=== PATIENT | female | born 1985 | race Caucasian/White ===

== ENCOUNTER 2016-12-17 09:26 | Outpatient (CLI) | payer OTHER | END 2016-12-17 09:27 | disposition home or self-care (01) | DX: G47.10 Hypersomnia, unspecified (principal); G47.8 Other sleep disorders; R06.83 Snoring; F51.04 Psychophysiologic insomnia ==

== ENCOUNTER 2017-01-06 19:16 | Outpatient (CLI) | payer OTHER | END 2017-01-06 19:17 | disposition home or self-care (01) | DX: G47.33 Obstructive sleep apnea (adult) (pediatric) (principal); Z68.33 Body mass index [BMI] 33.0-33.9, adult ==

== ENCOUNTER 2017-01-28 09:20 | Outpatient (CLI) | payer OTHER | END 2017-01-28 09:21 | disposition home or self-care (01) | DX: G47.33 Obstructive sleep apnea (adult) (pediatric) (principal) ==

== ENCOUNTER 2017-03-11 08:59 | Outpatient (CLI) | payer OTHER | END 2017-03-11 09:00 | disposition home or self-care (01) | DX: G47.33 Obstructive sleep apnea (adult) (pediatric) (principal) ==

== ENCOUNTER 2017-03-17 14:56 | Emergency (ER) | payer OTHER ==
[2017-03-17] MEDS ORDERED: KETOROLAC 60 MG/2 ML VIAL IM STA (15:13)
[2017-03-17] MEDS ORDERED: predniSONE 20 MG TABLET PO STA (15:13)
[2017-03-17] MEDS ORDERED: KETOROLAC 60 MG/2 ML VIAL ONE (15:17)
[2017-03-17] MEDS ORDERED: predniSONE 20 MG TABLET ONE (15:17)
== END 2017-03-17 15:26 | disposition home or self-care (01) ==
DX: M54.17 Radiculopathy, lumbosacral region (principal); R03.0 Elevated blood-pressure reading, without diagnosis of hypertension
CPT/HCPCS: 96372; 99283; J7512

== ENCOUNTER 2019-04-27 13:21 | Emergency (ER) | payer OTHER ==
[2019-04-27 13:32] VITALS: BP 133/87
== END 2019-04-27 13:34 | disposition left against medical advice (07) ==
LOC: ED 13:21
DX: Z53.21 Procedure and treatment not carried out due to patient leaving prior to being seen by health care provider (principal)

== ENCOUNTER 2019-12-05 06:17 | Emergency (ER) | payer OTHER ==
[2019-12-05 06:37] VITALS: BP 117/91
--- NOTE | 2019-12-05 07:30 | ED Physician Documentation ---
PD HPI HEENT - Stated complaint Stated Complaint: SORE THROAT - Chief complaint Chief Complaint: Heent - History obtained from History obtained from: Patient - History of Present Illness Timing - duration: Hours Timing - details: Abrupt onset Location: Throat Associated symptoms: No: Fever, Congestion, Rhinorrhea, Trismus, Swollen nodes Similar symptoms before: Has not had sx before Recently seen: Clinic - Additional information Additional information: This is a 34-year-old woman who went to the [facility] yesterday and had a cyst on her left breast incised and drained. They put her on amoxicillin as a "precaution". She took the first dose around 7:00 last night. She woke up at 415 feeling like there was swelling and kind of a phlegm feeling in the back of her throat. When she looked in there she noticed that the uvula was swollen. She did not see any white patches. She has not been around anyone who has been sick recently. She is never had this happen before and to her knowledge has never had amoxicillin. She does not have any rash, shortness of breath or fever. Review of Systems Constitutional: denies: Fever Throat: reports: Sore throat. 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 - Past Surgical History Past Surgical History: Yes General: Colonoscopy /CONTRACT PROJECT MANAGER: Oophrectomy - Present Medications Home Medications: Ambulatory Orders Medication Instructions Recorded Confirmed Amoxicillin 500 mg PO DAILY 12/05/19 12/05/19 - Allergies Allergies/Adverse Reactions: Allergies Allergy/AdvReac Type Severity Reaction Status Date / Time No Known Drug Allergies Allergy Verified 12/05/19 06:37 - Social History Does the pt smoke?: No Smoking Status: Never smoker Does the pt drink ETOH?: No Does the pt have substance abuse?: No - Immunizations Immunizations are current?: Yes - POLST Patient has POLST: No PD ED PE NORMAL - Vitals Vital signs reviewed: Yes - General General: Alert and oriented X 3, No acute distress, Well developed/nourished - HEENT HEENT: Atraumatic, PERRL, EOMI, Ears normal, Moist mucous membranes, Other (There is edema isolated to the uvula. No posterior or tonsillar pillar area edema or edema. The tongue is not edematous.) - Neck Neck: Supple, no meningeal sign - Cardiac Cardiac: RRR - Respiratory Respiratory: No respiratory distress, Other (Voice is clear.) Results - Vitals Vitals: Vital Signs - 24 hr 12/05/19 06:20 Temperature 36.9 C Heart Rate 74 Respiratory 16 Rate Blood Pressure 117/91 H O2 Saturation 99 Oxygen O2 Source Room air PD MEDICAL DECISION MAKING - ED course Complexity details: d/w patient ED course: Patient has apparent angioedema without any infectious etiology evident. Possible that this is a reaction to the amoxicillin so she is going to stop taking that and be cautious about ever being exposed to it again in the future. Avoid gargling. Cool liquids would be helpful. Benadryl and/or ibuprofen for the swelling. Return if she has any difficulty breathing or swallowing. Departure - Departure Disposition: 01 Home, Self Care Clinical Impression: Angioedema Qualifiers: Encounter type: initial encounter Qualified Code(s): T78.3XXA - Angioneurotic edema, initial encounter Condition: Good Instructions: ED Angioedema Follow-Up: TOM Aleman [Provider Group] Comments: Avoid doing any gargling. Drink cool liquids. May try Benadryl and/or ibuprofen to help with the swelling. I would avoid amoxicillin in the future. Return if you have any difficulty breathing or if you have inability to swallow.
== END 2019-12-05 07:42 | disposition home or self-care (01) ==
LOC: ED 06:17
DX: T78.3XXA Angioneurotic edema, initial encounter (principal); X58.XXXA Exposure to other specified factors, initial encounter
CPT/HCPCS: 99283; 99284

== ENCOUNTER 2020-11-24 20:15 | Emergency (ER) | payer OTHER ==
[2020-11-24 20:28] VITALS: BP 125/93
[2020-11-24] MEDS ORDERED: diphenhydrAMINE INJ 50 MG/ML VIAL IM STA (20:36)
--- NOTE | 2020-11-24 21:05 | ED Physician Documentation ---
History of Present Illness - Stated complaint Stated Complaint: ALLERGIC REACTION - Chief complaint Chief Complaint: Allergic Rx - History obtained from History obtained from: Patient - Additonal information Additional information: 35-year-old female was brought to the emergency department for evaluation of allergic reaction after taking her COVID-19 vaccine. This is her first vaccination. Very shortly after receiving the vaccine she developed a flushed rash on her face and neck. She denied chest pain or shortness of breath. She did feel fullness in her jaws but had no dysphonia. She reported that she is feeling quite anxious and lightheaded. She reports a history of allergy to fluconazole as well as significant daily allergies for which she takes Zyrtec. Review of Systems Constitutional: reports: Reviewed and negative Ears: reports: Reviewed and negative Nose: reports: Reviewed and negative Throat: reports: Reviewed and negative Cardiac: denies: Chest pain / pressure, Palpitations Respiratory: denies: Dyspnea, Cough, Hemoptysis, Wheezing GI: reports: Reviewed and negative : reports: Reviewed and negative Skin: reports: Rash (facial flusing). 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 - Past Surgical History Past Surgical History: Yes General: Colonoscopy /TROUBLE CLERK: Oophrectomy - Present Medications Home Medications: Ambulatory Orders Medication Instructions Recorded Confirmed Amoxicillin 500 mg PO DAILY 12/05/19 12/05/19 - Allergies Allergies/Adverse Reactions: Allergies Allergy/AdvReac Type Severity Reaction Status Date / Time No Known Drug Allergies Allergy Verified 11/24/20 20:21 - Social History Does the pt smoke?: No Smoking Status: Never smoker Does the pt drink ETOH?: No Does the pt have substance abuse?: No - Immunizations Immunizations are current?: Yes - POLST Patient has POLST: No PD ED PE EXPANDED - General General: Alert, No acute distress, Anxious - HEENT HEENT: PERRL, Pupils unequal, Moist mucous membranes, Pharynx normal, Other (Normal phonation. No tongue or lip swelling. No swelling on the floor of the mouth.). No: Swollen tonsils, Tonsillar exudate - Neck Neck: Supple w/out meningeal sx, No tenderness. No: Adenopathy - Cardiac Cardiac: Regular Rate, Regular Rhythm, Radial strong equal, Pedal strong equal, Cap refill < 2 sec - Respiratory Respiratory: Clear to ausultation bennie. No: Distress, Labored - Abdomen Abdomen: Normal Bowel sounds. No: Tender to palpation - Derm Derm: Normal color, Warm and dry, Rash (Facial flushing of cheeks and neck without induration or urticaria.) - Neuro Neuro: Alert and Oriented X 3, CNII-XII intact - GCS Eye Opening: Spontaneous Motor: Obeys Commands Verbal: Oriented Total: 15 Results - Vitals Vitals: Vital Signs - 24 hr 11/24/20 11/24/20 20:21 20:48 Temperature 36.8 C Heart Rate 92 92 Respiratory 20 20 Rate Blood Pressure 125/93 H 125/93 H O2 Saturation 100 100 Oxygen O2 Source Room air PD MEDICAL DECISION MAKING - ED course Complexity details: reviewed results, re-evaluated patient, considered differential, d/w patient ED course: 35-year-old female was brought to the emergency department for evaluation of allergic reaction after receiving her first dose of Pfizer COVID-19 vaccine. Very shortly after receiving the injection she had flushing and erythema of the face and neck. No way did she have chest pain shortness of breath. She was brought into the emergency department. After about 15 minutes most of the flushing and erythema had dissipated. Patient was feeling well at that time. I did give her Benadryl 50 mg IM. This caused the rash to nearly fully gama. Patient was observed in the emergency department for over an hour with out any findings of airway compromise. Her vital signs remained stable. She is discharged home. She was advised to discuss this allergic reaction with the vaccine administration staff before she gets the second dose of the Pfizer Covid vaccine. Premedication with Benadryl may be advised. Departure - Departure Disposition: Home, Self Care Clinical Impression: Vaccine reaction Qualifiers: Encounter type: initial encounter Qualified Code(s): T50.Z95A - Adverse effect of other vaccines and biological substances, initial encounter Condition: Stable Record reviewed to determine appropriate education?: Yes Comments: Coretta you had a mild allergic reaction to the COVID-19 vaccine. You began to get better without any treatment here in the emergency department though we did give you some Benadryl. I would recommend that you take the Benadryl once or twice a day for the next few days. If at any point you have a worsening of the rash, tongue or lip swelling difficulty breathing shortness of air please return immediately to the ER
--- OUTSIDE RECORDS SUMMARY | 2020-11-30 01:22 | EXTERNAL MEDICAL SUMMARY RPT | Continuity of Care Document ---
:1985 Demographics Phone Unavailable Preferred Language Unknown Marital Status Unknown Mandaen Affiliation Unknown Race Unknown Ethnic Group Unknown Author Organization [facility] Address [address] [phone] Phone Care Team Providers Name Role Phone DE SOUZA Unavailable Unavailable Allergies date description facility No Known Drug Allergies [facility] NO KNOWN ALLERGIES [facility] NO KNOWN ALLERGIES [facility] Social History date description facility [phone]
== END 2020-11-24 21:43 | disposition home or self-care (01) ==
LOC: ED 20:15
DX: T80.62XA Other serum reaction due to vaccination, initial encounter (principal); T50.Z95A Adverse effect of other vaccines and biological substances, initial encounter; R23.2 Flushing; R21 Rash and other nonspecific skin eruption; Y84.8 Other medical procedures as the cause of abnormal reaction of the patient, or of later complication, without mention of misadventure at the time of the procedure
CPT/HCPCS: 96372; 99283; 99284; J1200

== ENCOUNTER 2021-02-22 18:24 | Emergency (ER) | payer OTHER ==
--- OUTSIDE RECORDS SUMMARY | 2021-02-22 18:27 | EXTERNAL MEDICAL SUMMARY RPT | Continuity of Care Document ---
:1985 Demographics Phone Unavailable Preferred Language Unknown Marital Status Unknown Gnosticism Affiliation Unknown Race Unknown Ethnic Group Unknown Author Organization [place] Address [address] [phone] Phone Social History date description facility [phone]
--- OUTSIDE RECORDS SUMMARY | 2021-02-22 18:29 | EXTERNAL MEDICAL SUMMARY RPT | Continuity of Care Document ---
:1985 Demographics Phone Unavailable Preferred Language Unknown Marital Status Unknown Evangelical Affiliation Unknown Race Unknown Ethnic Group Unknown Author Organization [place] Address [address] [phone] Phone Social History date description facility [phone]
[2021-02-22 18:41] VITALS: BP 140/100
[2021-02-22] MEDS ORDERED: KETOROLAC 30 MG/ML VIAL IM STA (18:58)
--- NOTE | 2021-02-22 20:20 | ED Physician Documentation ---
History of Present Illness - Stated complaint Stated Complaint: BACK PX - Chief complaint Chief Complaint: Back Pain - History obtained from History obtained from: Patient - Additonal information Additional information: 45-year-old woman with past medical history of sciatica presents with right lower back pain Progressively worsening over the past several days radiating to the right leg consistent with her usual sciatica. Sharp, intermittent, worse with movement. Denies fever, groin numbness, urinary or fecal incontinence, weakness or sensory loss. Denies other symptoms. 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 : None HEENT: None Psych: None Musculoskeletal: None Derm: None - Past Surgical History Past Surgical History: Yes General: Colonoscopy /TARIFF EXPERT: Oophrectomy - Present Medications Home Medications: Ambulatory Orders Medication Instructions Recorded Confirmed No Known Home Medications 02/22/21 02/22/21 - Allergies Allergies/Adverse Reactions: Allergies Allergy/AdvReac Type Severity Reaction Status Date / Time No Known Drug Allergies Allergy Verified 02/22/21 18:39 - Social History Does the pt smoke?: No Smoking Status: Never smoker Does the pt drink ETOH?: No Does the pt have substance abuse?: No - Immunizations Immunizations are current?: Yes - POLST Patient has POLST: No PD ED PE NORMAL - Vitals Vital signs reviewed: Yes - General General: Alert and oriented X 3, No acute distress, Well developed/nourished - HEENT HEENT: Atraumatic, PERRL, EOMI - Extremities Extremities: Normal ROM s pain - Neuro Neuro: Other (ambulatory without difficulty) - Psych Psych: Normal mood, Normal affect Results - Vitals Vitals: Vital Signs - 24 hr 02/22/21 02/22/21 18:39 19:25 Temperature 36.6 C Heart Rate 81 Respiratory 18 16 Rate Blood Pressure 140/100 H O2 Saturation 100 Oxygen O2 Source Room air PD MEDICAL DECISION MAKING - ED course ED course: Note that I initially only only was able to visually evaluate Ms. Torrez. She said she was having a sciatica flare and we gave her a dose of Toradol. She eloped prior to full examination and I called her, confirming that she had improvement in her symptoms with Toradol. She states that she has not been experiencing any numbness, to the groin or to the extremities, no weakness, no fevers and this feels like her usual sciatica flares. I will call in a prescription for Toradol to [facility] in [place] and she will follow up with her primary doctor. Return precautions discussed. Departure - Departure Disposition: ED Elope Clinical Impression: Sciatica Condition: Good Discharge Date/Time: 02/22/21 20:10
== END 2021-02-22 20:10 | disposition left against medical advice (07) ==
LOC: ED 18:24
DX: M54.30 Sciatica, unspecified side (principal)
CPT/HCPCS: 96372; 99283

== ENCOUNTER 2021-04-18 01:42 | Emergency (ER) | payer OTHER ==
--- OUTSIDE RECORDS SUMMARY | 2021-04-18 01:46 | EXTERNAL MEDICAL SUMMARY RPT | Continuity of Care Document ---
:1985 Demographics Phone Unavailable Preferred Language Unknown Marital Status Unknown Anglican Affiliation Unknown Race Unknown Ethnic Group Unknown Author Organization [facility] Address [address] [phone] Phone Allergies Encounters Medications Problems Results
--- OUTSIDE RECORDS SUMMARY | 2021-04-18 01:49 | EXTERNAL MEDICAL SUMMARY RPT | Continuity of Care Document ---
:1985 Demographics Phone Unavailable Preferred Language Unknown Marital Status Unknown Pentecostalism Affiliation Unknown Race Unknown Ethnic Group Unknown Author Organization [place] Address [address] [phone] Phone Allergies Encounters Medications Problems Results
--- NOTE | 2021-04-18 01:56 | ED Physician Documentation ---
PD HPI HEENT - Stated complaint Stated Complaint: BILAT EAR SWELLING - Chief complaint Chief Complaint: Heent - History obtained from History obtained from: Patient - History of Present Illness Timing - onset: How many days ago (2) Timing - duration: Days (2) Timing - details: Gradual onset, Still present (much worse tonight with notable swelling of right ear canal and around the ear.) Location: Right ear, Left ear. No: Sinuses, Throat Worsens: No: Swalllowing, Noise Associated symptoms: No: Fever, Congestion, Rhinorrhea Similar symptoms before: Has not had sx before Recently seen: Not recently seen Review of Systems Constitutional: denies: Fever, Chills Ears: reports: Loss of hearing, Ear pain, Drainage/discharge. 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 DEPARTMENT: Oophrectomy - Present Medications Home Medications: Ambulatory Orders Medication Instructions Recorded Confirmed Cetirizine [ZyrTEC] 10 mg PO DAILY 04/18/21 04/18/21 Neomycin/Polymyx/Hc Otic Drops 4 drops OT QID 5 Days #10 ml 04/18/21 [Cortisporin Ear Susp] cephALEXin [Keflex] 500 mg PO TID 5 Days #15 cap 04/18/21 dexAMETHasone [Decadron] 4 mg PO DAILY #5 tablet 04/18/21 - Allergies Allergies/Adverse Reactions: Allergies Allergy/AdvReac Type Severity Reaction Status Date / Time egg Allergy Mild Hives Verified 04/18/21 01:51 - Social History Does the pt smoke?: No Smoking Status: Never smoker Does the pt drink ETOH?: No Does the pt have substance abuse?: No - Immunizations Immunizations are current?: Yes - POLST Patient has POLST: No PD ED PE NORMAL - Vitals Vital signs reviewed: Yes - General General: Alert and oriented X 3, Well developed/nourished, Other (appears in pain from right ear mostly, but some of both. ) - HEENT HEENT: PERRL, EOMI (no nystagmus), Moist mucous membranes, Pharynx benign. No: Ears normal (left ear canal with some swelling but no esucdate. Right canal with swelling, very tender, mild exudate. ALso swelling/tender of right preauricular node and some soft tissue swelling preauricular c/w process not just in ear canal. ) - Neck Neck: Supple, no meningeal sign - Cardiac Cardiac: RRR, No murmur - Respiratory Respiratory: Clear bilaterally - Abdomen Abdomen: Soft, Non tender - Derm Derm: Normal color, Warm and dry - Neuro Neuro: Alert and oriented X 3, No motor deficit, Normal speech Results - Vitals Vitals: Vital Signs - 24 hr 04/18/21 04/18/21 01:45 03:26 Temperature 37 C 37.7 C Heart Rate 91 99 Respiratory 16 16 Rate Blood Pressure 135/94 H 132/101 H O2 Saturation 99 98 Oxygen O2 Source Room air PD MEDICAL DECISION MAKING - ED course Complexity details: considered differential (redness and swelling of canal but also swelling/tender right preauricular adenopathy, so seems deeper tissue c/w cellulitis. ), d/w patient Departure - Departure Disposition: 01 Home, Self Care Clinical Impression: Cellulitis of right ear canal Otitis externa Qualifiers: Otitis externa type: unspecified type Chronicity: acute Laterality: bilateral Qualified Code(s): H60.503 - Unspecified acute noninfective otitis externa, bilateral Condition: Stable Record reviewed to determine appropriate education?: Yes Instructions: ED Otitis Externa Follow-Up: ALLIE DE SOUZA DO [Primary Care Provider] - Prescriptions: Neomycin/Polymyx/Hc Otic Drops [Cortisporin Ear Susp] 4 drops OT QID 5 Days #10 ml dexAMETHasone [Decadron] 4 mg PO DAILY #5 tablet cephALEXin [Keflex] 500 mg PO TID 5 Days #15 cap Comments: The ear canals are swollen and may be just irritated with inflammation. However infection is of concern and particularly on the right side. Decadron steroid daily for 5 days for inflammation. Use the Cortisporin antibiotic/anti- inflammatory eardrops as directed 4 times a day in both ears. Add cephalexin 3 times a day for the next 5 days for infection of the tissue. Tylenol or ibuprofen as needed for pains. Recheck if not improved well over the next several days. Discharge Date/Time: 04/18/21 03:29
[2021-04-18] MEDS ORDERED: NEOMYCIN/POLYMYX/HC OTIC DROPS EACHEAR STA (02:43)
[2021-04-18] MEDS ORDERED: DEXAMETHASONE 10 MG/ML VIAL PO STA (02:43)
[2021-04-18] MEDS ORDERED: CHERRY SYRUP 10 ML UDC PO ONE (02:43)
[2021-04-18] MEDS ORDERED: KETOROLAC 30 MG/ML VIAL IM STA (02:43)
[2021-04-18] MEDS ORDERED: ACETAMINOPHEN 325 MG TABLET PO STA (02:44)
[2021-04-18 03:27] VITALS: BP 132/101
== END 2021-04-18 03:29 | disposition home or self-care (01) ==
LOC: ED 01:42
DX: H60.503 Unspecified acute noninfective otitis externa, bilateral (principal); H60.11 Cellulitis of right external ear
CPT/HCPCS: 99283; 99284; A9270

== ENCOUNTER 2021-05-22 21:19 | Emergency (ER) | payer OTHER ==
[2021-05-22 21:32] VITALS: BP 130/80
[2021-05-22] MEDS ORDERED: KETOROLAC 15 MG/ML VIAL IM STA (22:07)
--- NOTE | 2021-05-22 22:08 | ED Physician Documentation ---
PD HPI HEENT - Stated complaint Stated Complaint: BILAT EAR PX - Chief complaint Chief Complaint: Heent - History obtained from History obtained from: Patient (35-year-old woman with recurrent external otitis of both years started bothering her earlier this morning. Had a similar episode a little over a month ago. 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 : None HEENT: None Psych: None Musculoskeletal: None Derm: None - Past Surgical History Past Surgical History: Yes General: Colonoscopy /CREDIT CONTROL ADMINISTRATOR: Oophrectomy - Present Medications Home Medications: Ambulatory Orders Medication Instructions Recorded Confirmed Cetirizine [ZyrTEC] 10 mg PO DAILY 04/18/21 05/22/21 Neomycin/Polymyx/Hc Otic Drops 4 drops OT QID 5 Days #10 ml 04/18/21 05/22/21 [Cortisporin Ear Susp] cephALEXin [Keflex] 500 mg PO TID 5 Days #15 cap 04/18/21 05/22/21 dexAMETHasone [Decadron] 4 mg PO DAILY #5 tablet 04/18/21 05/22/21 - Allergies Allergies/Adverse Reactions: Allergies Allergy/AdvReac Type Severity Reaction Status Date / Time egg Allergy Mild Hives Verified 05/22/21 21:30 - Social History Does the pt smoke?: No Smoking Status: Never smoker Does the pt drink ETOH?: No Does the pt have substance abuse?: No - Immunizations Immunizations are current?: Yes - POLST Patient has POLST: No PD ED PE NORMAL - Vitals Vital signs reviewed: Yes - General General: Alert and oriented X 3, No acute distress - HEENT HEENT: Other (Bilateral occlusive external otitis. Molina ear jemma were placed bilaterally during evaluation.) - Neck Neck: Supple, no meningeal sign, No bony TTP - Neuro Neuro: Alert and oriented X 3, Normal speech Results - Vitals Vitals: Vital Signs - 24 hr 05/22/21 21:30 Temperature 36.5 C Heart Rate 90 Respiratory 16 Rate Blood Pressure 130/80 O2 Saturation 100 Oxygen O2 Source Room air PD MEDICAL DECISION MAKING - ED course ED course: She already has Cortisporin ointment/drops and advised to restart this. Given the recurrent nature we will do a fingerstick glucose to check for hyperglycemia/diabetes. Departure - Departure Disposition: 01 Home, Self Care Clinical Impression: Otitis externa of both ears Qualifiers: Otitis externa type: unspecified type Chronicity: acute Qualified Code(s): H60.503 - Unspecified acute noninfective otitis externa, bilateral Condition: Good Record reviewed to determine appropriate education?: Yes Instructions: ED Otitis Externa Comments: Use the eardrops 4-5 times daily. The earwax should drop out on their own when ready. I agree with you that it is reasonable to follow-up with an ENT physician for further evaluation and treatment. The closest is in [place], the phone numbers [phone].
== END 2021-05-22 22:28 | disposition home or self-care (01) ==
LOC: ED 21:19
DX: H60.503 Unspecified acute noninfective otitis externa, bilateral (principal)
CPT/HCPCS: 96372; 99281; 99283

== ENCOUNTER 2022-09-08 18:02 | Emergency (ER) | payer OTHER ==
[2022-09-08 18:12] VITALS: BP 135/87
--- NOTE | 2022-09-08 18:12 | ED Physician Documentation ---
History of Present Illness - Stated complaint Stated Complaint: HEART RACING - History obtained from History obtained from: Patient - History of Present Illness Timing: Today Pain level max: 0 Pain level now: 0 - Additonal information Additional information: Patient is a 37-year-old female who presents to the emergency department complaining of palpitations earlier today. She states is been ongoing for over a year. She was placed on propanolol but decided to stop this 2 days ago. Today she felt her heart racing and states that on her watch her heart rate was 115 bpm. Currently she is asymptomatic. Nothing seems to make it better or worse. No chest pain. No shortness of breath. She is scheduled to see cardiology and have a Holter monitor or Zio patch applied. Review of Systems Constitutional: denies: Fever, Chills Respiratory: denies: Cough GI: denies: Nausea, Vomiting, Diarrhea Skin: denies: Rash Musculoskeletal: denies: Neck pain, Back pain Neurologic: denies: Headache PD PAST MEDICAL HISTORY - Past Medical History Cardiovascular: None Respiratory: Pneumonia Neuro: None Endocrine/Autoimmune: None GI: None FACIALIST: Endometriosis : None HEENT: None Psych: None Musculoskeletal: None Derm: None - Past Surgical History Past Surgical History: Yes General: Colonoscopy /FACIALIST: Oophrectomy - Present Medications Home Medications: Ambulatory Orders Medication Instructions Recorded Confirmed Cetirizine [ZyrTEC] 10 mg PO DAILY 04/18/21 05/22/21 Neomycin/Polymyx/Hc Otic Drops 4 drops OT QID 5 Days #10 ml 04/18/21 05/22/21 [Cortisporin Ear Susp] cephALEXin [Keflex] 500 mg PO TID 5 Days #15 cap 04/18/21 05/22/21 dexAMETHasone [Decadron] 4 mg PO DAILY #5 tablet 04/18/21 05/22/21 - Allergies Allergies/Adverse Reactions: Allergies Allergy/AdvReac Type Severity Reaction Status Date / Time egg Allergy Mild Hives Verified 05/22/21 21:30 fluconazole [From Diflucan] Allergy Rash Verified 09/08/22 18:12 - Social History Does the pt smoke?: No Smoking Status: Never smoker Does the pt drink ETOH?: No Does the pt have substance abuse?: No - Immunizations Immunizations are current?: Yes - POLST Patient has POLST: No PD ED PE NORMAL - Vitals Vital signs reviewed: Yes - General General: Alert and oriented X 3, No acute distress, Well developed/nourished - HEENT HEENT: Moist mucous membranes - Neck Neck: Supple, no meningeal sign - Cardiac Cardiac: RRR, No murmur, Strong equal pulses - Respiratory Respiratory: No respiratory distress, Clear bilaterally - Abdomen Abdomen: Soft, Non tender, Non distended - Derm Derm: Warm and dry - Extremities Extremities: No edema - Neuro Neuro: Alert and oriented X 3 - Psych Psych: Normal mood, Normal affect Results - Vitals Vitals: Vital Signs - 24 hr 09/08/22 09/08/22 18:06 18:12 Temperature 36.4 C L 36.5 C Heart Rate 77 77 Respiratory 14 14 Rate Blood Pressure 135/87 H 135/87 H O2 Saturation 98 98 Oxygen O2 Source Room air - EKG (time done) 1804 Rate: Rate (enter#) (75) Rhythm: NSR [place]: Normal Intervals: Normal [place] QRS: Normal Ischemia: Normal ST segments PD MEDICAL DECISION MAKING - ED course Complexity details: considered differential, d/w patient ED course: Patient is asymptomatic in the emergency department. EKG shows no acute abnormalities. She has already had blood work for this. No further work-up indicated at this time. We will have her follow-up with her doctor for further care. Patient counseled regarding signs and symptoms for which I believe and urgent re-evaluation would be necessary. Patient with good understanding of and agreement to plan and is comfortable going home at this time This document was made in part using voice recognition software. While efforts are made to proofread this document, sound alike and grammatical errors may occur. Departure - Departure Disposition: 01 Home, Self Care Clinical Impression: Palpitations Condition: Good Instructions: ED Palpitations Follow-Up: FORD MACIAS PA [Primary Care Provider] - Comments: Your EKG is normal tonight. Please follow-up with your doctor for further care including discussion of a Holter monitor or Zio patch. You can also take an EKG on your apple watch if you are feeling the symptoms as we discussed and show this to your doctor. Please return if you worsen. Discharge Date/Time: 09/08/22 18:36
== END 2022-09-08 18:36 | disposition home or self-care (01) ==
LOC: ED 18:02
DX: R00.2 Palpitations (principal)
CPT/HCPCS: 93005; 99282; 99283

== ENCOUNTER 2023-09-11 14:05 | Emergency (ER) | payer OTHER ==
[2023-09-11 14:20] VITALS: BP 129/88; O2SAT 99
[2023-09-11] MEDS ORDERED: KETOROLAC 30 MG/ML VIAL IM STA (15:51)
--- NOTE | 2023-09-11 15:57 | ED Physician Documentation ---
PD HPI HEENT - Stated complaint Stated Complaint: RT EAR SWOLLEN - Chief complaint Chief Complaint: Heent - History obtained from History obtained from: Patient - History of Present Illness Location: Right ear Improves: Nothing Worsens: Everything Associated symptoms: No: Fever, Congestion, Rhinorrhea, Trismus, Unable to swallow, Swollen nodes, Facial swelling, Headache, Cough Similar symptoms before: Diagnosis - Additional information Additional information: 38-year-old female presents with right ear irritation and drainage and decreased hearing. The patient states symptoms have been present for a couple of days. She had similar symptoms in the past and was diagnosed with otitis externa and was given Toradol as well as eardrop which was effective for the patient. The patient denies any Q-tip use, she does not swim, no new earrings or anything else placed in the ear. She does not know why she has had recurrent issues with this and has not seen an hearing aid specialist. She denies any fever or chills, no cough or URI symptoms, otherwise feels well. 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 CHAIR: Oophrectomy - Present Medications Home Medications: Ambulatory Orders Medication Instructions Recorded Confirmed Cetirizine [ZyrTEC] 10 mg PO DAILY 04/18/21 09/11/23 Ciproflox/Dexameth Otic Drops 4 drops OT BID #7.5 ml 09/11/23 [Ciprodex Otic Drops] - Allergies Allergies/Adverse Reactions: Allergies Allergy/AdvReac Type Severity Reaction Status Date / Time egg Allergy Mild Hives Verified 09/11/23 14:15 fluconazole [From Diflucan] Allergy Rash Verified 09/11/23 14:15 - Social History Does the pt smoke?: No Smoking Status: Never smoker Does the pt drink ETOH?: No Does the pt have substance abuse?: No - Immunizations Immunizations are current?: Yes - POLST Patient has POLST: No PD ED PE NORMAL - Vitals Vital signs reviewed: Yes - General General: Alert and oriented X 3, No acute distress, Well developed/nourished - HEENT HEENT: Atraumatic, Moist mucous membranes, Other (Mild at right external ear swelling and skin irritation with mild redness, there is a serous drainage from the ear and the ear canal was swollen and macerated, TM normal. Lt ear nl. ) - Neck Neck: Supple, no meningeal sign, No adenopathy - Cardiac Cardiac: RRR, No murmur - Respiratory Respiratory: No respiratory distress, Clear bilaterally Results - Vitals Vitals: Vital Signs - 24 hr 09/11/23 14:16 Temperature 36.8 C Heart Rate 75 Respiratory 18 Rate Blood Pressure 129/88 H O2 Saturation 99 Oxygen O2 Source Room air PD Medical Decision Making - ED course Complexity details: reviewed old records, re-evaluated patient, considered differential, d/w patient ED course: 38-year-old female presented with right ear irritation and drainage. On exam, her sinusHas an otitis externa. She does not have any signs of diffuse cellulitis or otitis media. I recommended that we start the eardrops again, I will give her Ciprodex, and that she requested a dose of Toradol here for pain control which I administered. I recommended ibuprofen and Tylenol at home for pain, and avoid putting anything other than the eardrops into the ear, try to avoid getting it wet, and do not swim or submerge in water until healed. Given the patient has had now 3 or 4 episodes in the same ear for unclear reasons, I have recommended that she follow-up with Otolaryngology prn. Departure - Departure Disposition: Home, Self Care Clinical Impression: Otitis externa Qualifiers: Otitis externa type: unspecified type Chronicity: acute Laterality: right Qualified Code(s): H60.501 - Unspecified acute noninfective otitis externa, right ear Condition: Good Instructions: ED Otitis Externa Prescriptions: Ciproflox/Dexameth Otic Drops [Ciprodex Otic Drops] 4 drops OT BID #7.5 ml Comments: Please use the antibiotic drops as prescribed, avoid any Q-tips or other irritation of the area. Since this has been a recurrent issue for you you may consider following up with an hearing aid specialist to determine if th ere is a reason you are having recurrent episodes. You can take Tylenol ibuprofen as needed for pain, try to keep the ear dry and do not put anything else in the ear. Your medications were sent to [facility] in [place].. Forms: PCP List Discharge Date/Time: 09/11/23 16:01
== END 2023-09-11 16:01 | disposition home or self-care (01) ==
LOC: ED 14:05
DX: H60.501 Unspecified acute noninfective otitis externa, right ear (principal)
CPT/HCPCS: 96372; 99283